=== PATIENT | male | born 1950 | race Caucasian/White ===

== ENCOUNTER → 2020-05-29 | Outpatient (CLI) | payer MEDICARE, OTHER ==
[2015-12-27 23:20] VITALS: BP 124/83
[~2020-05-29] MED LIST: AMIO200T6 PO; APIX5TAB3 PO; CARV12.547 PO; DILT120C71 PO; FURO40TA4 PO; OMEP40CA45 PO; POTA10TA5 PO; SPIR25TA5 PO
--- NOTE | 2020-06-04 17:11 | CARD ---
MR#: [id number] Date of Study: 05/29/2020 Ordering Physician: AIME VIEIRA, Referring Physician: AIME VIEIRA, Tech: Chantel Kramer [facility] APPROVED REPORT EXAM: Two-dimensional and M-mode echocardiogram with Doppler and color Doppler. Other Information Quality : Technically LimitedHR: 56bpm Rhythm : NSR INDICATION Aortic Valve Disease Surgery/Intervention Bioprosthetic 2D DIMENSIONS Left Atrium(2D)2.6 (1.6-4.0cm)IVSd1.3 (0.7-1.1cm) Aortic Root(2D)2.6 (2.0-3.7cm)LVDd5.2 (3.9-5.9cm) LVOT Diameter1.9 (1.8-2.4cm)PWd1.2 (0.7-1.1cm) LVDs3.2 (2.5-4.0cm)FS (%) 38.2 % SV87.8 mlLVEF(%)68.1 (>50%) Aortic Valve AoV Peak Joss.270.4cm/sAoV VTI69.1cm AO Peak GR.29.3mmHgLVOT Peak Joss.144.1cm/s LVOT VTI 38.66cmAO Mean GR.16mmHg BELL (VMAX)1.41di2ROI (VTI)1.62cm2 Mitral Valve MV E Nwbfrpoj11.8cm/sMV DECEL [id number] MV A Vlxeymdf14.2cm/sE/A Ratio1.1 Tricuspid Valve TR P. Vitlouoc338pg/sTR Peak Gr.21mmHg LEFT VENTRICLE The left ventricle is normal size. There is mild concentric left ventricular hypertrophy. The left ve ntricular systolic function is normal and the ejection fraction is within normal range. Estimated ej ection fraction 50-55%. There is normal LV segmental wall motion. RIGHT VENTRICLE The right ventricle is normal size. There is normal right ventricular wall thickness. ATRIA The left atrium size is normal. The right atrium size is normal. AORTIC VALVE Doppler and Color Flow revealed no significant aortic regurgitation. There is no significant aortic v alvular stenosis. There are normal prosthetic aortic valve gradients. MITRAL VALVE The mitral valve is normal in structure and function. There is no evidence of mitral valve prolapse. There is no mitral valve stenosis. Doppler and Color Flow revealed trace mitral valve regurgitation. TRICUSPID VALVE The tricuspid valve is normal in structure and function. Doppler and Color Flow revealed trace tricus pid regurgitation. Estimated PAP 25-30 mmHg. There is no tricuspid valve stenosis. GREAT VESSELS The aortic root is normal in size. The ascending aorta is normal in size. Due to poor image quality, the IVC could not be assessed. PERICARDIAL EFFUSION There is no evidence of significant pericardial effusion. Critical Notification Critical Value: No <Conclusion> The left ventricle is normal size. The left ventricular systolic function is normal and the ejection fraction is within normal range. Estimated ejection fraction 50-55%. There is mild concentric left ventricular hypertrophy. There are normal prosthetic aortic valve gradients. Doppler and Color Flow revealed no significant aortic regurgitation. There is no significant aortic valvular stenosis. Doppler and Color Flow revealed trace mitral valve regurgitation. Doppler and Color Flow revealed trace tricuspid regurgitation. Estimated PAP 25-30 mmHg. Signed by : Gino Nelson MD Electronically Approved : 06/04/2020 17:11:27
== END ==
LOC: ECHO 13:54
PROVIDERS: ATTEND Internal Medicine Cardiovascular Disease
DX: I35.0 Nonrheumatic aortic (valve) stenosis (principal); I51.7 Cardiomegaly
CPT/HCPCS: 93306

== ENCOUNTER → 2021-06-11 | Outpatient (CLI) | payer MEDICARE, OTHER ==
[2015-12-27 23:20] VITALS: BP 124/83
[~2021-06-11] MED LIST changes: +AMIO200T54 PO; -AMIO200T6 PO; -OMEP40CA45 PO; +OMEP40CA7 PO; +POTA-112 PO; -POTA10TA5 PO
--- NOTE | 2021-06-12 08:02 | CARD ---
MR#: [id number] Date of Study: 06/11/2021 Ordering Physician: AIME MENDEZ, Referring Physician: Romain BLOOD: Jeff Farrell [facility] APPROVED REPORT EXAM: Two-dimensional and M-mode echocardiogram with Doppler and color Doppler. Other Information Quality : FairHR: 86bpm Rhythm : Atrial Fibrillation INDICATION Aortic Valve Disease Surgery/Intervention Status/Post Aortic Valve Replacement: Bioprosthetic RISK FACTORS Hypertension Obesity Hyperlipidemia 2D DIMENSIONS Left Atrium(2D)4.7 (1.6-4.0cm)IVSd1.7 (0.7-1.1cm) Aortic Root(2D)3.7 (2.0-3.7cm)LVDd4.3 (3.9-5.9cm) PWd1.5 (0.7-1.1cm)LA Kodaqt239 (18-58mL) LVDs2.3 (2.5-4.0cm)FS (%) 46.4 % SV63.3 mlLVEF(%)78.1 (>50%) Aortic Valve AoV Peak Joss.209.3cm/sAoV VTI40.7cm AO Peak GR.17.5mmHgLVOT Peak Joss.99.8cm/s LVOT VTI 22.53cmAO Mean GR.10mmHg Mitral Valve MV E Peak Gr.5mmHgMV E Mean Gr.2mmHg Pulmonary Valve PV Peak Gkajznej28.7cm/sPV Peak Grad.3mmHg Tricuspid Valve TR P. Wiwvlczs898py/sTR Peak Gr.19mmHg LEFT VENTRICLE The left ventricle is normal size. There is moderate concentric left ventricular hypertrophy. The lef t ventricular systolic function is normal. The ejection fraction is 65%. There is normal LV segmental wall motion. The diastolic function was not assessed due to atrial fibrillation No left ventricle th rombus noted on this study. There is no ventricular septal defect visualized. There is no left ventri cular aneurysm. There is no mass noted in the left ventricle. RIGHT VENTRICLE The right ventricle is normal size. There is normal right ventricular wall thickness. The right ventr icular systolic function is normal. ATRIA The left atrium is moderately dilated. The right atrium size is normal. The interatrial septum is int act with no evidence for an atrial septal defect or patent foramen ovale as noted on 2-D or Doppler i maging. AORTIC VALVE Doppler and Color Flow revealed no significant aortic regurgitation. s/p TAVR, the bioprosthetic aort ic valve appears well seated. The peak and mean gradients are 17 mmHg and 9 mmHg respectively. MITRAL VALVE The mitral valve is thickened but opens well. Mitral annular calcification is mild. There is no evide nce of mitral valve prolapse. There is no mitral valve stenosis. Doppler and Color Flow revealed no m itral valve regurgitation noted. TRICUSPID VALVE The tricuspid valve is normal in structure and function. Doppler and Color Flow revealed trace tricus pid regurgitation. There is no tricuspid valve stenosis. PULMONIC VALVE The pulmonary valve is normal in structure and function. Doppler and Color Flow revealed no pulmonic valvular regurgitation. There is no pulmonic valvular stenosis. GREAT VESSELS The aortic root is normal in size. The ascending aorta is mildly dilated at 4.1 cm. The pulmonary art gaby is normal. The IVC is normal in size and collapses >50% with inspiration. PERICARDIAL EFFUSION There is no pleural effusion. There is no evidence of significant pericardial effusion. Critical Notification Critical Value: No <Conclusion> The left ventricular systolic function is normal. The ejection fraction is 65%. There is normal LV segmental wall motion. s/p TAVR, the bioprosthetic aortic valve appears well seated and fuctioning well with mean gradient 9 mmHg. Trace tricuspid regurgitation. The ascending aorta is mildly dilated at 4.1 cm. There is no evidence of significant pericardial effusion. Signed by : Aime Mendez, Electronically Approved : 06/12/2021 08:02:27
== END ==
LOC: ECHO 10:50
PROVIDERS: ATTEND Internal Medicine Cardiovascular Disease
DX: I08.0 Rheumatic disorders of both mitral and aortic valves (principal); Z95.2 Presence of prosthetic heart valve
CPT/HCPCS: 93306